=== PATIENT | male | born 1970 | race Hispanic/Latino ===

== ENCOUNTER 2023-05-11 15:22 | Emergency (ER) | payer BC, SELFPAY | END 2023-05-11 16:23 | disposition home or self-care (01) | LOC: CSHERS 15:22 | DX: S92.402A Displaced unspecified fracture of left great toe, initial encounter for closed fracture (principal); F17.200 Nicotine dependence, unspecified, uncomplicated; W20.8XXA Other cause of strike by thrown, projected or falling object, initial encounter; Y99.0 Civilian activity done for income or pay ==